=== PATIENT | female | born 1945 | race Caucasian/White ===

== ENCOUNTER → 2017-12-30 09:31 | Outpatient (POV) | payer MEDICARE, SELFPAY | PROVIDERS: Visit Provider Dentist | DX: Z00.00 Encounter for general adult medical examination without abnormal findings (principal) ==

== ENCOUNTER 2023-01-06 11:00 | Outpatient (RCR) | payer MEDICARE, SELFPAY ==
--- NOTE | 2022-12-07 15:58 | [facility].PTOPWND ---
Rehab Outpt Wound Evaluation Rehab OP Wound Evaluation Start: 12/07/22 13:52 Freq: Status: Active Protocol: Document 12/07/22 15:47 PHONICKIE (Rec: 12/07/22 15:58 PHORNE [id number]) E-signed By Josh Cabrera, PT Subjective/History History History This is the initial PT eval for Tao Newton 77 yowf who presents with c/o B LE edema and need for new compression stockings. She reports, My legs have been swollen for more than 20 years like this, that's when they diagnosed me with lymphedema. She reports compression helps decrease her pain, which is much worse if her swelling increases. She reports no numbness or tingling, but she does have significant tenderness to palpation. She reports hx of anxiety, asthma, depression, HTN, fibromyalgia, OA, CCY, gastric bypass, and ORIF of L ankle. Subjective Subjective She reports pain is currently 0/10, at worst it is 4/10. 2/4 TTP noted to B lower legs. B LE noted with soft, doughy consistency of edema during palpation with mulitple palpable nodules throughout denoting Lipidema. Lymphedema Eval Classification of Lymphedema Secondary Lymphedema Yes: Lipolymphedema Stemmer's sign Stemmer's Sign yes Stage of Lymphedema Lymphedema stages Stage III (Non-pitting, fibrosis and sclerosis, skin changes) Skin Changes Dry Skin Yes Redness Yes Discoloration of Skin Yes Other Changes Yes Pain Scale Pain Scale (0-10) 4 Affected Extremities Areas Affected by Lymphedema/Edema Right Lower Extremity,Left Lower Extremity Manual Lymphatic Drainage Treatment Area MLD Treatment Area Right Lower Extremity,Left Lower Extremity Wound Problems/Impairments Impairments Problems/Impairmments Palpation Tenderness,Impaired Strength,Impaired Endurance, Impaired Transfers,Impaired
== END 2023-01-06 11:05 | disposition home or self-care (01) ==
LOC: PT 11:00
PROVIDERS: PCP Family Medicine; Visit Provider Family Medicine
DX: I89.0 Lymphedema, not elsewhere classified (principal)
CPT/HCPCS: 97140; 97162; 97760

== ENCOUNTER → 2023-02-12 13:39 | Outpatient (CLI) | payer MEDICARE, SELFPAY ==
[2023-02-12 13:13] LABS: Basophils % 0.8 % (0.1-2.0); Eosinophils # 0.2 K/mm3 (0.0-0.4); Eosinophils % 4.6 % (0.1-12.0); Hematocrit 38.4 % (37.0-47.0); Hemoglobin 11.5 g/dL (12.2-16.2); Lymphocytes # 1.5 K/mm3 (0.7-4.5); Lymphocytes % 38.4 % (10-50); Mean Corpuscular HGB Conc 29.9 g/dL (31.8-35.4); Mean Corpuscular Hemoglobin 30.4 pg (27.0-31.2); Mean Corpuscular Volume 101.7 fl (81-99); Mean Platelet Volume 8.5 fl (7.4-10.4); Monocytes # 0.3 K/mm3 (0.1-1.0); Monocytes % 6.7 % (1.7-9.3); Neutrophils % 49.5 % (37.0-80.0); Platelet Count 222 K/mm3 (142-424); Red Blood Count 3.77 M/mm3 (4.20-5.40); Red Cell Distribution Width 14.5 % (11.5-17.5)
[2023-02-12 13:19] LABS: Alanine Aminotransferase 16 U/L (12-78); Alkaline Phosphatase 95 U/L (38-126); Aspartate Amino Transferase 24 U/L (14-36); Bilirubin,Total 0.4 mg/dl (0.2-1.3); Blood Urea Nitrogen 33 mg/dl (7-17); Carbon Dioxide 22 mmol/L (22.0-30.0); Cholesterol 161 mg/dl (140-200); Estimated Glomerular Filt Rate 29 ml/min (>60); GFR (African American) 35 ML/MIN (>60); Triglycerides 83 mg/dl (30-150); VLDL Cholesterol 17 mg/dL (0-40)
[2023-02-12 13:20] LABS: Albumin Level 3.9 g/dl (3.5-5.0); Albumin/Globulin Ratio 1.3 (1.1-1.8); Calcium 8.8 mg/dl (8.4-10.2); Glucose 85 mg/dl (74-100); HDL Cholesterol 79 mg/dl (40-60); Total Protein,Serum 6.9 g/dl (6.3-8.2)
[2023-02-12 13:31] LABS: Direct LDL Cholesterol 63.33 mg/dL (100-129)
[2023-02-12 13:47] LABS: Chloride 113 mmol/L (98-107); Sodium 143 mmol/L (136-145)
[2023-02-12 13:50] LABS: Anion Gap 15.3 mEq/L (5-15); Potassium 7.3 mmoL/L (3.5-5.1)
[2023-02-12 13:51] LABS: Thyroid Stimulating Hormone 1.51 uIU/mL (0.465-4.68)
[2023-02-13 09:18] LABS: T4 (Thyroxine) 7.3 ug/dl (5.53-11.0)
== END ==
PROVIDERS: PCP Family Medicine; Visit Provider Family Medicine
DX: R53.83 Other fatigue (principal); E78.5 Hyperlipidemia, unspecified
CPT/HCPCS: 80053; 80061; 84436; 84443; 85025

== ENCOUNTER 2025-01-24 11:09 | Outpatient (CLI) | payer MEDICARE, SELFPAY ==
--- OUTSIDE RECORDS SUMMARY | 2025-01-24 11:15 | XMS_ITS | Data Portability ---
Author Organization [facility] WERNER Coch[facility] [place] [facility] Address [address] [facility] [facility] [facility] [address] [place] [address] Care Team Providers Care Doll Dresser Name Role Phone MEERA BECKER Primary Care Provider [phone] ELMER VALENCIA Business Intelligence Engineer Assessment No assessment recorded. Plan of Treatment Reminders Order Date Submit Date Provider Last Modified By Organization Details Last Modified Time Details Appointments None recorded. Lab surgical pathology study 2023 024 [facility], [address] [place] [address], [address], 4 09:37:14 urinalysis , dipstick, auto 2018 019 [facility], [address] [facility], [place], [address], 9 13:48:08 urinalysis , dipstick, auto 2017 018 [facility], [address] [facility], [place], [address], 8 16:27:46 Referral None recorded. Procedures None recorded. Surgeries None recorded. Imaging XR, abdomen, 1 view 2018 019 [facility] Radiology [facility], [address] [facility], [place], [address], 9 15:14:34 XR, abdomen, 1 view 2017 018 [facility] Radiology [facility], [address], [place], [address], 8 15:23:26 Medication Orders None recorded. Patient TargetsNo targets recorded. Patient Instructions Encounter Date Encounter Id Patient Instructions Last Modified By Organization Details Last Modified Time 05/12/2018 [id number] kidney stone: care instructions Not available 05/12/2018 16:27:46 eating healthy foods: care instructions Not available 05/12/2018 16:27:46 KUB negative - doing/feels well. Will see back 6 mo with kub Not available 05/12/2018 16:38:12 11/09/2018 [id number] only 1 lifetime stone - doing well and trying hydration/NaAvoid ance Will see back prn Not available 11/09/2018 13:48:08 Reason for Referral None Reported. Results Created Date Observation Date Name Description Value Unit Range Abnormal Flag Note LastModifiedBy Organization Detail LastModifiedTime 11/10/19 19 11/09/2018 urina lysis , dipst ick, auto Unknown Analyte Yellow Not Available [facility] [address] [place], [address], 11/09/2018 13:32:26 11/10/19 19 11/09/2018 urina lysis , dipst ick, auto Unknown Analyte Clear Not Available [facility] [address] [place], [address], 11/09/2018 13:32:26 11/10/19 19 11/09/2018 urina lysis , dipst ick, auto Unknown Analyte 1.015 Not Available [facility] [address] [place], [address], 11/09/2018 13:32:26 11/10/19 19 11/09/2018 urina lysis , dipst ick, auto Unknown Analyte 5.0 Not Available [facility] [address] [facility], [place], [address], 11/09/2018 13:32:26 11/10/19 19 11/09/2018 urina lysis , dipst ick, auto Unknown Analyte Negati ve Not Available [facility] [address] [facility], [place], [address], 11/09/2018 13:32:26 11/10/1911/09/2018 urina lysis , dipst ick, auto Unknown Analyte Negati ve Not Available [facility] [address] [facility], [place], [address], 11/09/2018 13:32:26 11/10/1911/09/2018 urina lysis , dipst ick, auto Unknown Analyte Negtiv e Not Available [facility] [address] [facility], [place], [address], 11/09/2018 13:32:26 11/10/19 19 11/09/2018 urina lysis , dipst ick, auto Unknown Analyte Normal Not Available [facility] [address] [facility], [place], [address], 11/09/2018 13:32:26 11/10/19 19 11/09/2018 urina lysis , dipst ick, auto Unknown Analyte Negati ve Not Available [facility] [address] [facility], [place], [address], 11/09/2018 13:32:26 11/10/19 19 11/09/2018 urina lysis , dipst ick, auto Unknown Analyte Normal Not Available [facility] [address] [facility], [place], [address], 11/09/2018 13:32:26 11/10/19 19 11/09/2018 urina lysis , dipst ick, auto Unknown Analyte Negati ve Not Available [facility] [address] [facility], [place], [address], 11/09/2018 13:32:26 11/10/19 19 11/09/2018 urina lysis , dipst ick, auto Unknown Analyte Negati ve Not Available [facility] [address] [place], [address], 11/09/2018 13:32:26 11/10/19 19 11/09/2018 urina lysis , dipst ick, auto Unknown Analyte Clean Catch Not Available [facility] [address] [facility], [place], [address], 11/09/2018 13:32:26 11/10/19 19 11/09/2018 urina lysis , dipst ick, auto Unknown Analyte Automa shannon Not Available [facility] [address] [facility], [place], [address], 11/09/2018 13:32:26 05/12/20 18 05/12/2018 urina lysis , dipst ick, auto Unknown Analyte Yellow Not Available [facility] [address] [place], [address], 05/12/2018 14:26:42 05/12/20 18 05/12/2018 urina lysis , dipst ick, auto Unknown Analyte Slight ly Hazy Not Available [facility] [address] [place], [address], 05/12/2018 14:26:42 05/12/20 18 05/12/2018 urina lysis , dipst ick, auto Unknown Analyte 1.015 Not Available [facility] [address] [place], [address], 05/12/2018 14:26:42 05/12/20 18 05/12/2018 urina lysis , dipst ick, auto Unknown Analyte 5.0 Not Available [facility] [address] [facility], [place], [address], 05/12/2018 14:26:42 05/12/20 18 05/12/2018 urina lysis , dipst ick, auto Unknown Analyte Negati ve Not Available [facility] [address] [place], [address], 05/12/2018 14:26:42 05/12/20 18 05/12/2018 urina lysis , dipst ick, auto Unknown Analyte Negati ve Not Available [facility] [address] [facility], [place], [address], 05/12/2018 14:26:42 05/12/20 18 05/12/2018 urina lysis , dipst ick, auto Unknown Analyte Negtiv e Not Available [facility] [address] [place], [address], 05/12/2018 14:26:42 05/12/20 18 05/12/2018 urina lysis , dipst ick, auto Unknown Analyte Normal Not Available [facility] [address] [place], [address], 05/12/2018 14:26:42 05/12/20 18 05/12/2018 urina lysis , dipst ick, auto Unknown Analyte Negati ve Not Available [facility] [address] [place], [address], 05/12/2018 14:26:42 05/12/20 18 05/12/2018 urina lysis , dipst ick, auto Unknown Analyte 1 mg/dl Not Available [facility] [address] [place], [address], 05/12/2018 14:26:42 05/12/20 18 05/12/2018 urina lysis , dipst ick, auto Unknown Analyte 1 mg/dl (+) Not Available [facility] [address] [facility], [place], [address], 05/12/2018 14:26:42 05/12/20 18 05/12/2018 urina lysis , dipst ick, auto Unknown Analyte Negati ve Not Available [facility] [address] [facility], [place], [address], 05/12/2018 14:26:42 05/12/20 18 05/12/2018 urina lysis , dipst ick, auto Unknown Analyte Clean Catch Not Available [facility] [address] [facility], [place], [address], 05/12/2018 14:26:42 05/12/20 18 05/12/2018 urina lysis , dipst ick, auto Unknown Analyte Automa shannon Not Available [facility] [address] [facility], [place], [address], 05/12/2018 14:26:42 07/19/20 24 07/19/2024 SURGI MAGDALENO surgical SEE BELOW abnormal Verdigre topat holog y Repor t NAME: HERNANDO NEWTON PATH: [id number] PROCE DURE DATE: 07/19 SIGNO UT DATE: 07/21 Copy to: Diagn osis: 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 AJCC: Tis, Nx, Mx SOURC E OF SPECI MEN: SKIN, R FOREH EAD CLINI MAGDALENO INFOR MATIO N: R/O: SCC. Gross Descr iptio n: The speci men consi sted of a agosto fragm ent which was trise cted and measu red 9 x 6 x 1 mm. All submi tted in one casse tte. Micro scopi c Descr iptio n: The epide rmis displ ays full thick ness kerat inocy te atypi a and disor ganiz ation . Invol vemen t of the dermi s is not noted . ELIANA GARCIA MD Shelley d Out Date: 07/21 09:36 1 Not Available [facility] [address] [place], [address], 07/21/2024 09:37:14 04/14/20 18 04/14/2018 XR, abdom en [facility] [address] [place] [address] Patien t Name: TAO mcmahan : 11/12[birth year] 50 Babatunde mcmahan Orderi ng Provid er: CHRISTY S G RAY EXAM DATE: 2017 EXAM: XR CU ABDOME N [facility] AL INFORM ATION: Histor y of urinar y tract stones . IMAGES PROVID ED: KUB AP radiog raphic images of the abdome n. COMPAR BRENDA: None. FINDIN GS AND IMPRES JOCELYN: There is a double -J ureter ic stent on the right. No stone is seen. No other signif icant abnorm ality. Interp reted By: Catina Reid MD Electr onical ly Signed By: Catina Reid MD on 04/14/20 18 4:59 PM [facility] [employer] [address] [place], [address], 04/15/2018 10:54:50 05/12/20 18 05/12/2018 XR, abdom en [facility] [address] [place] [address] Patien t Name: TAO mcmahan : 11/12/18 50 Patijuanjo t Orderi ng Provid er: CHRISTY S G RAY EXAM DATE: 2017 EXAM: XR CU ABDOME N [facility] INFORM ATION: Abdomi nal pain. Urolit hiasis IMAGES PROVID ED: KUB AP radiog raphic images of the abdome n. COMPAR BRENDA: 2017 FINDIN GS: No abnorm al intest inal gas patter n. Interv al remova l of right ureter al stent. No defini te stones visual ized. No radiog raphic eviden ce of free intrap eriton eal air. IMPRES JOCELYN: Normal x-ray abdome n KUB. Interp reted By: Dung Mari MD Electr onical ly Signed By: Dung Mari MD on 05/12/20 18 3:18 PM [email or web address] [facility] [employer] [address] [place], [address], 06/09/2018 13:35:16 11/10/19 19 11/09/2018 XR, abdom en, 1 view [facility] [address] [place] [address] Patien t Name: TAO Fine t : 11/12/18 50 Patien t Orderi ng Provid er: CHRISTY S G RAY EXAM DATE: 2018 EXAM: XR ABDOME N [facility] INFORM ATION: Histor y of urinar y tract stones . IMAGES PROVID ED: KUB AP radiog raphic images of the abdome n. COMPAR BRENDA: None. FINDIN GS AND IMPRES JOCELYN: No stones or calcif icatio ns are seen in the expect ed locati on of the kidney s, ureter s or urinar y bladde r. No other signif icant abnorm ality. Interp reted By: Catina Reid MD Electr onical ly Signed By: Catina Reid MD on 11/10/19 19 3:09 PM [email or web address] [facility] [employer] [address] [place], [address], 11/15/2018 15:12:52 Result Notes None recorded. Problems Name Problem SNOMED Code Status Onset Date Resolution Date Notes Provider Name and Address Organization Details Recorded Time History of malignant neoplasm of skin 421597831 Active History of SCC-L cheek (2017) ENEDELIA Garcia - [facility] 3 10:36:45 Problem Notes None recorded. Procedures Surgical History Date Name Laterality Status Provider Name and Address Organization Details Recorded Time 07/19/20 24 DAK - Cryo AK completed Niki Orourke [facility] 07/19/2024 14:06:20 07/19/20 24 DAK - Destruction BN Lesions completed Niki Orourke [facility] 07/19/2024 14:05:39 07/19/20 24 Blade Biopsy completed Niki [facility] 07/19/2024 14:07:49 07/20/20 23 Destruction Premalignant Lesion(s) completed ELMER GROSSMAN MD [address] [place], [address], [facility] 07/20/2023 10:49:06 04/28/20 18 CYSTOSCOPY, WITH URETEROSCOPY, WITH LITHOTRIPSY (SURG) completed Kris Sullivan [facility] 05/05/2018 12:36:14 Other completed Jaymie Singh [facility] 04/01/2018 11:00:17 Imaging Results Imaging Date Name Status LastModified by Organiz ation Details LastModified Time 04/14/2018 XR, abdomen completed [place] [facility] [address] [place], [address], 04/15/2018 10:54:50 05/12/2018 XR, abdomen completed [email or web address] [facility] [address] [place], [address], 06/09/2018 13:35:16 11/09/2018 XR, abdomen, 1 view completed [email or web address] [facility] [employer] [address] [place], [address], 11/15/2018 15:12:52 Procedure Notes None recorded. Medical Equipment None Reported. Allergies No known drug allergies Medications Name Sig Start Date Stop Date Status Note LastModified by Organization Details LastModified Time celecoxib 200 mg capsule Take 1 capsule every day by oral route. active Not Available Not Available No t Available Neurontin 300 mg capsule Every night at bedtime 04/01 completed Frequenc y: qhs;Medi cation Descript ion: gabapent in; Dosage:1 ; Route:or al; refills: 5; Quantity :30 capsule Not Available Not Available Not Available triazolam 0.25 mg tablet Take 1 tablet every day by oral route. active Not Available Not Available No t Available Multiple Vitamin capsule Daily 04/01 completed Duration : 30 days;Eugenio quency: daily;Me dication Descript ion: multivit rivero; Dosage:1 ; Route:or al; refills: 3; Quantity :100 capsule Not Available Not Available Not Available lisinopri l 20 mg tablet Take 1 tablet every day by oral route. 07/20 completed Not Available Not Available Not Available alendrona te 70 mg tablet Take 1 tablet every week by oral route. 04/14 completed Not Available Not Available Not Available tramadol 50 mg tablet Every four to six hours active Not Available Not Available No t Available Mobic 15 mg tablet Daily 04/01 completed Frequenc y: daily;Me dication Descript ion: meloxica m; Dosage:1 ; Route:or al; refills: 5; Quantity :30 tablet Not Available Not Available Not Available alprazola m 0.5 mg tablet active Not Available Not Available Not Available lorazepam 0.5 mg tablet active Not Available Not Available Not Available Os-Magdaleno 500 mg (as calcium carbonate 1,250 mg) tablet Three times a day 04/01 completed Frequenc y: tid;Medi cation Descript ion: calcium carbonat e; Route:or al; refills: 0; Quantity :3 tablet Not Available Not Available Not Available meclizine 25 mg tablet Three times a day 04/01 completed Duration : 30 days;Eugenio quency: tid;Alt Frequenc y: prn;Medi cation Descript ion: meclizin e; Dosage:1 ; Route:or al; refills: 2 Not Available Not Available Not Available levothyro xine 50 mcg tablet active Not Available Not Available Not Available fluoxetin e 20 mg tablet Take 1 tablet every day by oral route. 07/20 completed Not Available Not Available Not Available Cipro 500 mg tablet Take 1 tablet every 12 hours by oral route for 3 days. 05/12 completed Not Available Not Available Not Available buspirone 10 mg tablet active Not Available Not Available Not Available fluoxetin e 10 mg capsule active Not Available Not Available Not Available lisinopri l 5 mg tablet active Not Available Not Available Not Available fluoxetin e 20 mg capsule active Not Available Not Available Not Available doxycycli ne hyclate 100 mg tablet Take 1 tablet twice a day by oral route with meal(s) for 5 days. 2024 active Not Available Not Available Not Avai lable buspirone 15 mg tablet active Not Available Not Available Not Available cholecalc iferol (vitamin D3) 25 mcg (1,000 unit) capsule active Not Available Not Available Not Available Cymbalta 60 mg capsule,d elayed release Daily 04/01 completed Frequenc y: daily;Me dication Descript ion: duloxeti ne; Dosage:1 ; Route:or al; refills: 3; Quantity :30 delayed release capsule Not Available Not Available Not Available Cipro 11/09 completed Not Available Not Available Not Available levothyro xine 50 mg 1x day active Not Available Not Available No t Available fluoxetin e active Not Available Not Available Not Available hydroxyzi ne HCl 07/20 completed Not Available Not Available Not Available furosemid e 07/20 completed Not Available Not Available Not Available Vitamin D Daily active Frequenc y: daily;Me dication Descript ion: ergocalc iferol; Dosage:1 ; Route:or al; refills: 0; Quantity :30 Not Available Not Available Not Available lisinopri l active Not Available Not Available Not Available buspirone active Not Available Not Victoria ilable Not Available Vitals Date Recorded Body height Body mass index (BMI) Body weight Systolic blood pressure Diastolic blood pressure Provider Name and Address Organization Details Last Updated DateTime 05/12/2018 162.56 cm 48.4 kg/m2 426306.0 5 g 120 mm[Hg] 82 mm[Hg] Selene Jarrell [facility] 8 14:22:41 Date Recorded Body height Body mass index (BMI) Body weight Systolic blood pressure Diastolic blood pressure Provider Name and Address Organization Details Last Updated DateTime 11/09/2018 162.56 cm 48.4 kg/m2 417165.0 5 g 112 mm[Hg] 76 mm[Hg] Cinthia Brenda [facility] 9 13:25:45 Social History Question Answer Notes LastModified by Organizat ion Details LastModified Time Tobacco Smoking Status Never Smoker Jaymie Singh [facility] 04/01/2018 10:59:30 Marital Status Informatio n not available 04/01/2018 What Was The Date Of Your Most Recent Tobacco Screening? 07/20/2023 [email or web address] Information not available 07/20/2023 How Much Tobacco Do You Smoke? No [email or web address] Information not available 11/09/2018 Sex: Unknown Functional Status Question Answer Note LastModified by Organization D etails LastModified Time What is your level of alcohol consumption? None Information not available 04/01/2018 What is your occupation? Retired Information not available 04/01/2018 Mental Status None recorded. Family History Relationship Description Onset Age of this Age Resolved Age Notes LastModified by Organization Details LastModified Time Father Family history of malignant neoplasm mother braden Not available 2017 10:59:16 Father Malignant neoplasm of skin [email or web address] Not available 2022 10:05:23 Medical History Condition Response Gout N Kidney Stones Y Heart Arrhythmia N Emphysema N Erectile Dysfunction N Depression Y Glaucoma N Pneumonia N Anesthesia Complications N Cancer Prostate N Anxiety Disorder Y Obesity N Arthritis Y Acid Reflux (GERD) N Cancer N Stroke N Radiation Therapy N High Cholesterol N High PSA N Liver Disease N Kidney Disease N Allergies/Hayfever N Squamous Cell Carcinoma Y False Teeth N Heart Conditions N Chronic Obstructive Pulmonary Disease N Chemotherapy N Anemia N Urinary Problems N Ulcers N Heart Attack (MS) N Mental Illness N Diabetes N Seizures/Epilepsy N Low Testosterone N Tuberculosis N AIDS/HIV N Congestive Heart Failure (CHF) N BPH N Urinary Tract Infection N Asthma N Sleep Apnea N Thyroid Disorder N Hepatitis N Heart Disease N Bronchitis N Hypertension Y Gynecological HistoryNo gynecological history recorded. Obstetrics History GPAL:G 0 P 0 0 0 0 Past Encounters Encounter ID Performer Location Encounter Start Date Encounter Closed Date Diagnosis/Indication Diagnosis SNOMED-CT Code Diagnosis ICD10 Code Diagnosis Note [id number] OCTAVIA RAYA MD [address] [place] [address] 04/01/2018 10:08:26 04/05/2018 08:41:48 Ureteric stone 42701688 N20.1 [id number] BAO BOBO [facility] [address] [facility] [address] 04/14/2018 13:32:40 04/15/2018 09:13:36 Ureteric stone 81564113 N20.1 Obesity 689401828 E66.9 [id number] BAO BOBO MD UROLOGY [facility] [address] [place] [address] 05/12/2018 13:39:00 05/13/2018 08:38:20 Ureteric stone 75212061 N20.1 Hx of [id number] BAO BOBO MD UROLOGY [facility] [address] [facility] [address] 11/09/2018 13:10:47 11/10/2018 13:08:34 Kidney stone 39531664 N20.0 [id number] ELMER GROSSMAN MD [place] [address] [place] [address] 07/20/2023 09:45:46 07/20/2023 10:52:28 Melanocytic nevus of trunk 401000680 D22.5 - Benign, reassuranc e- Counseled on importance of daily sun protection (SPF 30, Broad Spectrum or sun protective clothing) and self skin exams/toña toring for ugly duckling lesions Raised cristina orrheic keratosis 6745360498 34340 L82.1 -Benign, reassuranc e Senile angioma 6630314 I 78.1 -Benign, reassuranc e Solar lentiginosis 80127 2007 L81.4 Benign, reassuranc e- Counseled on importance of daily sun protection (SPF 30, Broad Spectrum or sun protective clothing) and self skin exams/toña toring for ugly duckling lesions History of malignant basal cell neoplasm of skin 618406532 Z85.828 - No evidence of recurrence - Counseled on importance of daily sun protection (SPF >30, Broad Spectrum &/or sun protective clothing) and self exams for monitoring - Recommend routine FBSE Actinic keratosis 191793 007 L57.0 -Precancer ous nature discussed- Will TX with LN2 today (see proc note)-FUP if sites persist after TX History of malignant neoplasm of skin 049152244 Z85.828 - No evidence of recurrence - Counseled on importance of daily sun protection (SPF >30, Broad Spectrum &/or sun protective clothing) and self exams for monitoring - Recommend routine FBSE [id number] MILE MONTANA PA-C [address] [address] 07/19/2024 13:45:46 07/19/2024 15:26:10 Multiple benign melanocytic nevi 490363210 D22.5 L81.4 L82.1 D18.01 Benign appearing lesions.Re assurance given.Sun protection discussed. Look for physical tram sunscreens with at least SPF 30 containing zinc oxide or titanium dioxide as active ingredient .Recommend monthly self examinatio ns and yearly full skin examinatio n with a dermatolog y provider.P atient instructed to call with any concerns or changing lesions. History of malignant neoplasm of skin 723063526 Z85.828 Scar(s) clear with no evidence of recurrence today.Cont inue to monitor for any changes. Inflamed s eborrheic keratosis 668347189 L82.0 L29.89 The nature of the diagnosis was explained. Benign. Reassuranc e given.Both ersome lesions (itching, painful, growing, bleeding, getting caught in clothing), treated with LN2.Lesion s treated may persist. May f/u if treated lesions persist. Actinic keratosis L57.0 The nature of the diagnosis was explained. Pre-cancer ous.Treate d with LN2. Healing process discussed. Pt to call with any concerns or if lesion(s) persist. Neoplasm o f uncertain behavior of skin 34368744 D48.5 The etiology of lesion(s) discussed. Biopsy recommende d and completed today.Heal ing process and wound care discussed. Will call pt with results or post to portal if benign. [id number] AMANDA OROURKE, SHON KODIAK [address] [facility] [place] [address] 10/30/2024 08:58:17 10/31/2024 11:47:58 Health Concerns Section Related Observation LastModified by Organization Detai ls LastModified Time None Recorded Concern Status LastModified by Organization Details LastModified Time None Recorded Advance Directives Directive None Recorded Payers Insurance Date Sequence Insurance Name Policy Number Policy Trevino Covered Member ID Trevino Member ID Guarantor Name 11/02/2024 1 [facility] (MEDICARE REPLACEMENT/A DVANTAGE - PPO) [id number] Tao Newton [id number] Tao Newton 04/01/2018 2 [place] Dominickjanee Newton [id number] Tao Newton Notes Date Note Type Note Provider Name and Address Organization Details Recorded Time 05/12/2018 text/html 72 yo female returns for f/u 12 mm right ureteral stone. She was seen at the ER in [place] for fever, right flank pain and gross hematuria. She was transferred to and underwent urgent stent placement on 03/24 and then later laser lithotripsy. She has had no further flank pain or fever. She denies any hematuria, change in appetite, or abdominal pain. Patient c/o increased fluid intake with decrease in urine output. BAO BOBO MD [address] [place] [address], [address], [facility] 05/12/2018 16:38:29 11/09/2018 text/html 72 yo female returns for a 6 mo f/u visit. She has previously been seen due to a large right ureteral stone requiring Lithotripsy in March 2018. She denies recent passage of stones. No recent flank pain or gross hematuria. She is doing well. BAO BOBO MD [address] [place] [address], [phone], [facility] 11/09/2018 13:48:21 07/20/2023 text/html - Pt is here for a full body skin exam today- History of SCC-L cheek (2016)- Last skin exam was 05/07/[address] Noriega- Spots of concern today: multiple rough places Established DAK patient. ELMER GROSSMAN MD [address] [place] [address], [phone], [facility] 07/20/2023 10:49:20 07/19/2024 text/html Full skin examI have a place on my forehead and my L shoulder. Hx of SCC-L cheek (2016)Last seen 07/2023 MILE MONTANA PA-C [address] [place] [address], [phone], [facility] 07/19/2024 14:25:04 OBGyn Episode No OBEpisode recorded.
[2025-01-24 11:23] LABS: Microscopic, Urine URINE MICROSCOPIC (MICROSCOPIC)
[2025-01-24 11:47] LABS: Hematocrit 35.4 % (37.0-47.0); Hemoglobin 10.6 g/dL (12.2-16.2); Mean Corpuscular HGB Conc 29.9 g/dL (31.8-35.4); Mean Corpuscular Hemoglobin 27.7 pg (27.0-31.2); Mean Corpuscular Volume 92.7 fl (81-99); Nucleated Red Blood Cells # 0 10^3/uL; Nucleated Red Blood Cells % 0 %; Platelet Count 230 K/mm3 (142-424); Red Blood Count 3.82 M/mm3 (4.20-5.40); Red Cell Distribution Width 16.2 % (11.5-17.5); White Blood Count 3.9 K/mm3 (4.8-10.8)
[2025-01-24 11:51] LABS: Appearance,Urine SL CLOUDY (Clear); Bilirubin,Urine Negative (Negative); Blood, Urine Negative (Negative); Color,Urine YELLOW (Yellow); Glucose,Urine (UA) Negative (Negative); Ketones,Urine Negative (Negative); Leukocyte Esterase,Urine Negative (Negative); Nitrate,Urine POSITIVE (Negative); PH,Urine 5.5 (5.0-8.5); Protein,Urine Negative (Negative); Specific Gravity, Urine 1.025 (1.005-1.030); Urobilinogen,Urine 0.2 EU/dl (0.2)
[2025-01-24 11:59] LABS: Creatinine,Urine Random 215 mg/dL (Not Estab.)
[2025-01-24 12:02] LABS: Bacteria,Urine 4+ /lpf
[2025-01-24 12:23] LABS: Blood Urea Nitrogen 31 mg/dl (7-17); Calcium 8.8 mg/dl (8.4-10.2); Carbon Dioxide 28 mmol/L (22.0-30.0); Chloride 108 mmol/L (98-107); Estimated Glomerular Filt Rate 40 ml/min (>60); GFR (African American) 48 ML/MIN (>60); Glucose 90 mg/dl (74-100); Phosphorous 3.9 mg/dl (2.5-4.5); Sodium 141 mmol/L (136-145)
[2025-01-24 12:38] LABS: 25-OH Vitamin D, Total 37.7 ng/mL (30-100)
[2025-01-25 08:21] LABS: Cystatin C 1.97 mg/L (0.78-1.15)
== END 2025-01-24 23:59 | disposition home or self-care (01) ==
LOC: LAB 11:14
PROVIDERS: PCP Family Medicine; Visit Provider Nurse Practitioner Family
DX: N18.31 Chronic kidney disease, stage 3a (principal); E55.9 Vitamin D deficiency, unspecified
CPT/HCPCS: 36415; 80069; 81001; 82306; 82570; 82610; 83970; 84156; 85027; 87086; 87088; 87186

== ENCOUNTER 2025-04-25 12:30 | Outpatient (CLI) | payer MEDICARE, SELFPAY ==
[2025-04-25 17:54] LABS: Albumin Level 3.9 g/dl (3.5-5.0); Chloride 110 mmol/L (98-107); Potassium 5.4 mmoL/L (3.5-5.1); Sodium 142 mmol/L (136-145)
[2025-04-25 17:57] LABS: Alanine Aminotransferase 12 U/L (12-78); Albumin/Globulin Ratio 1.5 (1.1-1.8); Alkaline Phosphatase 94 U/L (38-126); Anion Gap 12.4 mEq/L (5-15); Aspartate Amino Transferase 24 U/L (14-36); Bilirubin,Total 0.2 mg/dl (0.2-1.3); Blood Urea Nitrogen 41 mg/dl (7-17); Calcium 8.6 mg/dl (8.4-10.2); Carbon Dioxide 25 mmol/L (22.0-30.0); Creatinine,Serum 1.40 mg/dl (0.52-1.04); Estimated Glomerular Filt Rate 36 ml/min (>60); GFR (African American) 44 ML/MIN (>60); Globulin 2.6 g/dL (1.3-3.2); Glucose 62 mg/dl (74-100); Total Protein,Serum 6.5 g/dl (6.3-8.2)
[2025-04-25 18:29] LABS: Thyroid Stimulating Hormone 2.44 uIU/mL (0.465-4.68)
[2025-04-25 19:54] LABS: Free T4 (Free Thyroxine) 1.24 ng/dl (0.78-2.19)
--- OUTSIDE RECORDS SUMMARY | 2025-04-26 10:52 | XMS_ITS | Clinical Summary ---
Author Organization [facility] Address [address] [place] [address] Care Team Providers Care Die Operator Name Role Phone Maverick Britton MD Primary Care Provider [phone] Allergies Active Allergy Reactions Criticality Noted Date Comments 2,4-D Dimethylamine Rash Low 04/27/2007 Medications traMADol (Ultram) 50 MG tablet Take as needed 3 Active levothyroxine (Synthroid, Levoxyl) 50 MCG tablet levothyroxine 50 mcg tablet 5 Active triazolam (Halcion) 0.25 MG tablet Take 1 tablet (250 mcg) by mouth at night if needed for sleep. Active FLUoxetine (PROzac) 20 MG capsule 3 Active celecoxib (CeleBREX) 200 MG capsule 3 Active busPIRone (Buspar) 15 MG tablet 1 tablet (15 mg) 3 (three) times a day. 4 Active LORazepam (Ativan) 0.5 MG tablet 4 Active FLUoxetine (PROzac) 10 MG capsule 3 capsules (30 mg) 1 (one) time each day. 4 Active ALPRAZolam (Xanax) 0.5 MG tablet 4 Active cholecalcifero l (Vitamin D-3) 25 MCG (1000 UT) capsule Take 1 capsule by mouth daily. 90 capsule 2 5 Active lisinopril 5 MG tablet Take 1 tablet by mouth daily. 90 tablet 2 5 Active Active Problems Problem Noted Date Diagnosed Date Stage 3a chronic kidney disease 04/14/2023 SIRISHA (acute kidney injury) 04/14/2023 Renal insufficiency 02/13/2023 03/03/2023 Hyperkalemia 02/12/2023 03/03/2023 Obesity, morbid, BMI 50 or higher 11/30/2017 03/03/2023 Osteoarthritis 11/30/2017 03/03/2023 Lymphedema 12/30/2016 03/03/2023 Orthopnea 12/30/2016 03/03/2023 Acquired hypothyroidism 08/19/2016 03/03/20 23 Essential hypertension 08/19/2016 3 Insomnia 08/19/2016 03/03/2023 Major depressive disorder 08/19/20162022 Multiple joint pain 08/19/2016 03/03/2023 Vitamin D deficiency 08/19/2016 03/03/2023 Left ankle pain 08/07/2015 03/03/2023 Bimalleolar fracture of left ankle 01/14/2015 03/03/2023 Thoracic spine fracture 01/04/2015 03/03/20 23 Encounters Date Type Department Care Team Description 02/01/2025 Telephone [facility] Nephrology, Bone & Mineral Metabolism [address], [address] [place] [address] Delma Garcia 01/30/2025 [facility] Nephrology, Bone & Mineral Metabolism [address], [address] [place] [address] Felipe Villanueva PA from Last 3 Months Immunizations Immunization Administration Dates Next Due Influenza, Unspecified 06/03/2015,06/29/2014 Influenza, high-dose, quadrivalent 08/04/2022, Influenza, injectable, quadrivalent 07/22/2017 Moderna COVID-19 Vaccine (Re d Cap) 12+ years 12/31/2021,07/09/2021,2020,10/16 Pneumococcal Polysaccharide PPV23 06/29/2014 TD (adult), 2 Lf tetanus tox oid, preservative free, adsorbed 02/06/1999 Zoster, live 08/21/2009 Social History Tobacco Use Types Packs/Day Years Used Date Smoking Tobacco: Never Smokeless Tobacco: Never Tobacco Cessation:Counseling Given: Not Answered Alcohol Use Standard Drinks/Week Comments Never 0 (1 standard drink = 0.6 oz pur e alcohol) PHQ-2 Answer Date Recorded Patient Health Questionnaire-2 Score 2 06/16/2023 PHQ-2A Answer Date Recorded Patient Health Questionnaire-2 Score 2 06/16/2023 Comments Unknown Sex and Gender Information Value Date Recorded Sex Assigned at Female 01/11/2024 2:45 PM EDT Legal Sex Female 7:45 PM EDT Gender Identity Female 01/11/2024 2:45 PM EDT Sexual Orientation Not on file Last Filed Vital Signs Vital Sign Reading Time Taken Comments Blood Pressure 145/77 01/23/2025 10:46 AM EDT Pulse 64 06/16/2023 9:42 AM EDT Temperature 36.4 C (97.5 F) 06/16/2023 9:42 AM EDT Respiratory Rate 18 06/16/2023 9:42 AM EDT Oxygen Saturation 93% 06/16/2023 9:42 AM EDT Inhaled Oxygen Concentration - - Weight 136 kg (300 lb) 01/23/2025 10:46 AM EDT Height 162.6 cm (5' 4 ) 01/23/2025 10:46 AM EDT Body Mass Index 51.49 01/23/2025 10:46 AM EDT Plan of Treatment Upcoming Encounters Date Type Department Care Team (Late st Contact Info) Description 07/24/2025 10:40 AM EST Office Visit [facility] Nephrology, Bone & Mineral Metabolism [address], [address] [place] [address] Libby Cameron APRN [address] [place] [address] Health Maintenance Due Date Last Done Comments [facility]-Bone Density Scan 1945 [facility]-Hepatitis C Screening 1945 [facility]-Medicare Annual Wellness (AWV) 1945 [facility]-Infant/Child/Adol SDOH Screenings 1945 [facility]- SDOH Screenings 11/12/1965 [facility]-Adult SDOH Screenings 11/12/1965 [facility]-DTaP,Tdap,and Td Vaccines (1 - Tdap) 02/07/1999 02/06/1999 [facility]-Zoster Vaccines (1 of 2) 10/16/2009 08/21/2009 [facility]-Pneumococcal Vaccine: 50+ Years (2 of 2 - PCV) 06/29/2015 06/29/2014 [facility]-RSV Vaccine: 60+ Years or (1 - 1-dose 75+ series) 11/12/2022 [facility]-Depression Screening 06/16/2024 06/16/2023 [id number] Vaccine (8 - Moderna risk 2023- season) 2025 07/27/2024, 06/14/2023, 07/01/2022, Additional history exists [facility]-Influenza Vaccine (#1) 05/07/202507/27, 06/14/2023, 08/04/2022, Additional history exists [facility]-Obesity Intervention Completed 025, 07/25/2024, 01/12/2024, Additional history exists HPV Vaccines Aged Out No longer eligi ble based on patient's age to complete this topic [facility]-HIB Vaccines Aged Out No longer e ligible based on patient's age to complete this topic [facility]-Hepatitis A Vaccines Aged Out No longer eligible based on patient's age to complete this topic [facility]-IPV Vaccines Aged Out No longer e ligible based on patient's age to complete this topic [facility]-Rotavirus Vaccines Aged Out No lo nger eligible based on patient's age to complete this topic Insurance MEDICARE Care Teams Die Operator Relationship Specialty Start Date End Date Maverick Britton MD [facility] - General 02/16/23
--- OUTSIDE RECORDS SUMMARY | 2025-04-26 10:52 | XMS_ITS | Continuity of Care Document ---
Author Organization [facility] Address [address] [place] [address] Phone Care Team Providers Care Regional Business Manager Name Role Phone Maverick Britton MD Primary Care Provider [phone] Encounters Date Type Department Care Team Description 02/22/2023 Orders Only [facility] Nephrology [place] [address] [facility] [address] [place] [address] Oneil Pastor MD Hyperkalemia (Primary Dx) 02/12/2023 7:00 PM EDT - 02/15/2023 4:20 PM EDT Hospital Encounter [facility] [address]D [facility] [place] [address] Giselle Staples MD Kiri, Aniket, DO Hyperkalemia (Primary Dx) Discharge Disposition: Home or Self Care 03/19/2022 Travel 03/19/2022 2:00 PM EDT - 03/19/2022 11:59 PM EDT Hospital Encounter [facility] [address] [place] [address] Maverick Britton MD Encounter for screening mammogram for malignant neoplasm of breast Discharge Disposition: Home or Self Care 03/11/2021 Travel 03/11/2021 1:30 PM EDT - 03/11/2021 11:59 PM EDT Hospital Encounter [facility] [place] [address] Maverick Britton MD Breast pain, left Discharge Disposition: Home or Self Care 03/11/2021 12:52 PM EDT - 03/11/2021 1:29 PM EDT Hospital Encounter [facility] [address] [place], [place] [address] Maverick Britton MD Breast pain, left Discharge Disposition: Home or Self Care 11/09/2019 1:06 PM EST - 11/09/2019 11:59 PM EST Hospital Encounter [facility] [address] [place] [address] Maverick Britton MD Encounter for screening mammogram for malignant neoplasm of breast Discharge Disposition: Home or Self Care 11/06/2019 Travel 03/22/2018 12:42 PM EDT - 03/22/2018 11:59 PM EDT Hospital Encounter [facility] [address] [place] [address] Maverick Britton MD Encounter for screening mammogram for malignant neoplasm of breast Discharge Disposition: Home or Self Care 03/15/2017 1:15 PM EDT - 03/15/2017 11:59 PM EDT Hospital Encounter [facility] [address] [place] [address] Maverick Britton MD Visit for screening mammogram Discharge Disposition: Home or Self Care 06/30/2013 4:47 AM EDT - 06/30/2013 11:59 PM EDT Hospital Encounter [facility] Other Location View online schedule for mobile van location [phone] Anne Newton MD Other screening mammogram Discharge Disposition: Home or Self Care Allergies No known active allergies Medications LEVOthyroxine (SYNTHROID) 50 mcg Oral TabletIndicatio ns:hypothyroidi sm Take by mouth daily. Indications: a condition with low thyroid hormone levels Active FLUoxetine (PROZAC) 20 mg Oral CapsuleIndicati ons:major depressive disorder Take 20 mg by mouth daily. Indications: major depressive disorder Active busPIRone (BUSPAR) 10 mg Oral Tablet Take 10 mg by mouth daily. Active triazolam (HALCION) 0.25 mg Oral TabletIndicatio ns:insomnia Take 0.25 mg by mouth nightly as needed for Other. Indications: difficulty sleeping Active traMADoL (ULTRAM) 50 mg Oral TabletIndicatio ns:pain Take 50 mg by mouth every 6 hours as needed for Pain. Indications: pain Active Active Problems Problem Noted Date Diagnosed Date Renal insufficiency 02/13/2023 Obesity, morbid, BMI 50 or higher 02/13/2023 Acquired hypothyroidism 02/13/2023 Hyperkalemia 02/12/2023 Social History Smoking Status as of 04/26/2025 Tobacco Use Types Packs/Day Years Used Date Smoking Tobacco: Never Assessed Overall Financial Resource Strain (CARDIA) Answe r Date Recorded How hard is it for you to pa y for the very basics like food, housing, medical care, and heating? Not very hard 02/15/2023 PHQ-2 Answer Date Recorded PHQ-2 Total Score 0 02/15/2023 Exercise Vital Sign Answer Date Recorde d On average, how many days pe r week do you engage in moderate to strenuous exercise (like a brisk walk)? 2 days 02/15/2023 On average, how many minutes do you engage in exercise at this level? 20 min 02/15/2023 Hunger Vital Sign Answer Date Recorded Within the past 12 months, y ou worried that your food would run out before you got the money to buy more. Never true 02/16/20 23 Within the past 12 months, t he food you bought just didn't last and you didn't have money to get more. Never true 02/15/2023 PRAPARE - Transportation Answer Date Re corded In the past 12 months, has l ack of transportation kept you from medical appointments or from getting medications? No 02/04 In the past 12 months, has l ack of transportation kept you from meetings, work, or from getting things needed for daily living? No 02/15/2023 Sex and Gender Information Value Date Recorded Sex Assigned at Not on file Legal Sex Female 1:26 PM EDT Gender Identity Not on file Sexual Orientation Not on file Last Filed Vital Signs Vital Sign Reading Time Taken Comments Blood Pressure 113/57 02/15/2023 9:27 AM EDT Pulse 68 02/15/2023 9:27 AM EDT Temperature 36.7 C (98.1 F) 02/15/2023 9:27 AM EDT Respiratory Rate 16 02/15/2023 9:27 AM EDT Oxygen Saturation 98% 02/15/2023 9:27 AM EDT Inhaled Oxygen Concentration - - Weight 131 kg (288 lb 12.8 oz) 02/13/2023 12:59 AM EDT Height 160 cm (5' 3 ) 02/13/2023 12:59 AM EDT Body Mass Index 51.16 02/13/2023 12:59 AM EDT Plan of Treatment Not on file Procedures Procedure Name Priority Date/Time Associated Diagnosis Comments SCANNED EKG 02/15/2023 12:09 PM EDT ECG AND WAVEFORMS - TELEMETRY Routine 02/15/2023 7:30 AM EDT BASIC METABOLIC PANEL Early AM 02/15/2023 7:21 AM EDT IP CONSULT TO NUTRITION Routine 02/14/2023 11:51 PM EDT ECG AND WAVEFORMS - TELEMETRY Routine 02/14/2023 6:00 PM EDT PLATELET COUNT Timed 02/14/2023 9:38 AM EDT BASIC METABOLIC PANEL Early AM 02/14/2023 9:38 AM EDT ECG AND WAVEFORMS - TELEMETRY Routine 02/13/2023 11:57 PM EDT ECG AND WAVEFORMS - TELEMETRY Routine 02/13/2023 7:09 PM EDT US RENAL AND BLADDER Routine 02/13/2023 5:49 PM EDT SODIUM LEVEL URINE Routine 02/13/2023 5:22 PM EDT PROTEIN/CREATININ E RATIO URINE Routine 02/13/2023 5:22 PM EDT ECG AND WAVEFORMS - TELEMETRY Routine 02/13/2023 4:27 PM EDT THYROID STIMULATING HORMONE Routine 02/13/2023 12:31 PM EDT VITAMIN B12/ FOLIC ACID Routine 02/13/2023 12:31 PM EDT BASIC METABOLIC PANEL Early AM 02/13/2023 12:31 PM EDT IP CONSULT TO NEPHROLOGY Routine 02/13/2023 12:22 AM EDT Procedure Note - Oneil Pastor MD - 02/13/2023 12:50 PM EDTThis note is in progress. Images from the original note were not included. [facility] [phone] / [phone] [employer] [facility] Consult Note Patient: Tao Newton : 1945 Reason for Consult: Hyperkalemia Requesting Provider: Dr Staples History of Present Illness / Subjective: Tao Newton is a 77 y.o. female with a PMHx of HTN, lymphedema, depressionwho presents with abnormal outpatient labs. Admitted withHyperkalemia. Tao Newton reports that she takes lisinopril 20mg qday and celebrex. Nonew issues, symptoms, or complaints reported today. +NSAID use. Per chart review, Tao Newton No prior labs are available, unknownbaseline renal function (unknown if Elevated Creatinine is SIRISHA or CKD).She reports no prior kidney issues except a kidney stone one time; [facility]. Social History: no family present. Chief Complaint Patient presents with Hyperkalemia Pt sent in by PMD for high potasium. History reviewed. No pertinent past medical history. History reviewed. No pertinent surgical history. Allergies: Patient has no known allergies. Current Medications: Scheduled Meds: cefTRIAXone (ROCEPHIN) IVPB (Orderable) 1 g Intravenous Daily heparin, porcine (PF) 5,000 Units Subcutaneous 3 times per day LEVOthyroxine 50 mcg Oral DAILY EARLY AM Continuous Infusions: sodium bicarbonate - custom infusion builder 100 mL/hr at 02/13/23 0607 Social History Occupational History Not on file Tobacco Use Smoking status: Never Smokeless tobacco: Never Vaping Use Vaping Use: Never used Substance and Sexual Activity Alcohol use: Yes Comment: occ Drug use: Never Sexual activity: Not on file History reviewed. No pertinent family history. Review of Systems Constitutional: Negative for chills and fever. Cardiovascular: Positive for leg swelling. Gastrointestinal: Negative for abdominal pain. Genitourinary: Negative for dysuria. Skin: Negative for itching and rash. Endo/Heme/Allergies: Negative for polydipsia. Psychiatric/Behavioral: Negative for memory loss. Physical exam: Vitals: 02/13/23 0907 BP: 123/63 Pulse: 63 Resp: (!) 23 Temp: 98.1 F (36.7 C) SpO2: 97% Temp (24hrs), Av.8 F (36.6 C), Min:97.2 F (36.2 C), Max:98.1 F(36.7 C) & BP Min: 113/46 Max: 157/75 Pulse Av.8 Min: 63 Max: 112 24HR INTAKE/OUTPUT: Intake/Output Summary (Last 24 hours) at 02/13/2023 1250 Last data filed at 02/13/2023 0607 Gross per 24 hour Intake 1243.38 ml Output 1050 ml Net 193.38 ml Exam: Constitutional: Alert, appropriate, no acute distress HEENT: Normocephalic, external ears and nose normal Eyes: No injection, icterus, EOM grossly intact Neck: Supple, No tracheal shift Chest: No respiratory distress, clear to auscultation bilaterally, breathsounds vesicular, no wheeze, no crackles CVS: RRR, normal S1 & S2, no murmur LE edema +trace with lymphedema changes ABD: Soft, non-distended, non-tender. Morbidly obese Neuro: Moving all extremities, grossly intact. Skin: No rash, lesions, warm to touch Extremity: good perfusion, no lesion noted Database CBC: Recent Labs 02/12/23 184 WBC 5.2 HGB 11.3 HCT 38.0 MCV 103.8* MCHC 29.7* RDW 14.7 PLT 210 RENAL FUNCTION PANEL: Recent Labs 02/12/23 184 NA 139 K 6.4* CL 113* CO2 18* BUN 37* CREATININE 1.61* CALCIUM 9.1 PHOS 3.6 Magnesium: Recent Labs 02/12/231844 MG 2.2 COAGS: Liver panel: ABGs: ACID - BASE: Recent Labs 02/12/23184402/12/232026 ANIONGAP 8 -- KETONESU -- Negative UA Lab Results Component Value Date SPECGRAV 1.026 02/12/2023 UAPROTEIN Trace (10-20 mg/dL) 02/12/2023 BLOODU Negative 02/12/2023 NITRITE Negative 02/12/2023 LEUKOCYTESUR 2+ (75 Karina/mcl) (A) 02/12/2023 WBCUA 14 (H) 02/12/2023 RBCUA 1 02/12/2023 RADIOLOGY XR CHEST AP PORTABLE Result Date: 02/12/2023 AP PORTABLE CHEST XRAY, 02/12/2023 8:54 PM. CLINICAL HISTORY: -HYPERKALEMIACOMPARISON: None. PROCEDURE COMMENTS: AP portable chest x-ray. FINDINGS:Support devices: No visible support devices. Normal heart size. Aortamoderately tortuous with calcifications. No acute failure, pneumonia, oreffusion. No acute cardiopulmonary process. - Note: Radiology results need to beinterpreted within a comprehensive clinical context. If you havequestions about the radiology report, please contact the office of theordering clinician. EK EKG [address] [facility] Date:2023-[facility]12 Pat Name: TAO NEWTON Department: DEPIDPatient ID: [id number] Room: Gender: FemaleTechnician: [facility] : [id number] By: [facility] Order Number: [id number] MD: Hamzah ChMeasurements Intervals [place] Rate:71 P: 47 NH: 163QRS: -26 QRSD: 89 T:5 QT: 327 QTc:357Interpretive Statements SINUS RHYTHM WITH SINUS ARRHYTHMIA BORDERLINE LEFTAXIS DEVIATION VOLTAGE CRITERIA FOR LVH Electronically Signed On :59:32 EDT by Hamzah Ch Impression & Plan: # Hyperkalemia: - Admission K+ 6.4 -> 5.8 - A potassium restricted diet is typically about 2000 milligrams per day - Likely due to SIRISHA/CKD plus ACEi use with NSAIDs, plus NAGMA. * Plan: - Acute management in ER. S/p Lokelma. Goal BM today. Gave 20mg IVLasix as well. - Redosed veltassa today. - Target level 3.5-5.0 mEq/L. Avoid K supplementation. - Stop ACEi, ARB, NSAIDs. --> takes celebrex + lisinopril combo. - Repeat labs - Treating acidosis as below. # Acute Metabolic Acidosis: - CO2: 18 - Likely due to SIRISHA, plus ACEi use with NSAIDs use. * Plan: - Added bicarb gtt overnight. -> now stopped it #) Elevated Creatinine: SIRISHA versus CKD - Unfortunately, no prior labs are available for viewing today. Historyas above. Patient reports no h/o CKD. - Baseline creatinine: unknown - Admission creatinine 1.6 -> 1.6. - Evaluations this admission: - UA: few wbc - Urine electrolytes: _ - UPCR: _ - Renal insults: no recent contrast exposure, no antibiotics, no knownhypotension. - Cardiac function: denies issues. - Urine output: Non-Oliguric - Will treat empirically as SIRISHA to be safe. * Plan: - Repeat renal labs. Screen for Proteinuria. - mIVF resuscitation: LR at 75 ml/hr - Will follow-up the initial lab results and determine a correspondingplan. - Ordered: Urinalysis, Urine electrolytes, Urine spot Protein/Creatinine. - Ordered: Renal Ultrasound. - Avoid nephrotoxic medications (contrast dye, NSAIDs). Daily StandingWeights and strict I/O's. # Hypertension: - BP control is adequate to low for her age - Home meds: Lisinopril (held) - Meds are currently held. Thank you very much for asking us to participate in your patient's care.Do call me if you have any questions regarding the plan of care asoutlined. Cintia Pastor MD [facility] ([facility]) [phone] [employer] 02/13/2023, 12:50 PM XR CHEST AP PORTABLE NITO 02/12/2023 8:54 PM EDT URINALYSIS REFLEX STAT 02/12/2023 8:2 7 PM EDT UA W/REFLEX TO CULTURE STAT 02/12/2023 8:27 PM EDT URINE CULTURE (NO STAIN) STAT 02/12/2023 8:27 PM EDT EXTRA NEWTON URINE CX STAT 02/12/2023 8:27 PM EDT ADMIT STAT 02/12/2023 7:52 PM EDT PHOSPHORUS LEVEL Add-On 02/12/2023 6:45 PM EDT MAGNESIUM LEVEL Add-On 02/12/2023 6:45 PM EDT BASIC METABOLIC PANEL STAT 02/12/2023 6:45 PM EDT CBC WITH DIFF STAT 02/12/2023 6:45 PM EDT EK EKG 12 LEAD STAT 02/12/2023 4:11 PM EDT MM MAMMO DIGITAL SCREENING W CAD BILAT Routine 03/19/2022 2:38 PM EDT Encounter for screening mammogram for malignant neoplasm of breast MM US BREAST LIMITED LEFT Routine 03/11/2021 1:57 PM EDT Breast pain, left MM MAMMO DIGITAL SMILEY DIAGN BILAT Routine 03/11/2021 1:42 PM EDT Breast pain, left MM MAMMO DIGITAL SCREENING W CAD BILAT Routine 11/09/2019 1:32 PM EST Encounter for screening mammogram for malignant neoplasm of breast MM MAMMO DIGITAL SCREENING W CAD BILAT Routine 03/22/2018 1:08 PM EDT Encounter for screening mammogram for malignant neoplasm of breast MM MAMMO DIGITAL SCREENING W CAD BILAT Routine 03/15/2017 1:48 PM EDT Visit for screening mammogram MM OUTSIDE FILMS FOR COMPARISON Today 07/06/2013 12:27 PM EDT MM OUTSIDE FILMS FOR COMPARISON Today 07/06/2013 12:26 PM EDT MM OUTSIDE FILMS FOR COMPARISON Today 07/06/2013 12:25 PM EDT MM OUTSIDE FILMS FOR COMPARISON Today 07/06/2013 12:24 PM EDT MM MOBILE MAMMO DIGITAL SCREEN W CAD ARIADNA Routine 06/30/2013 4:27 PM EDT Other screening mammogram Results * SCANNED EKG (02/15/2023 12:09 PM EDT) Anatomical Region Laterality Modality Other 02/15/2023 12:0 9 PM EDT us Unknown Provider IMG ECG ORDERABLES Final Result * ECG AND WAVEFORMS - TELEMETRY (02/15/2023 7:30 AM EDT) Only the most recent of4 resultswithin the time period is included. [facility] ECG INTERPRET NSR [facility] 02/15/2023 7:30 AM EDT Narrative [facility] - 02/15/2023 10:29 AM EDT /LH/HICUITY/ROUTINE [place] 0.17 QRS 0.12 QT 0.38 See Clinical Report link for waveform capture us Unknown Provider POINT OF CARE CARDIOLOGY Final Result [facility] [address] [place] [id number] * (ABNORMAL) BASIC METABOLIC PANEL (02/15/2023 7:21 AM EDT) Only the most recent of4 resultswithin the time period is included. [facility] Sodium 140 136 - 145 mmol/L 02/15/2023 8:06 AM EDT [facility] Potassium 5.0 3.5 - 5.0 mmol/L 02/15/2023 8:06 AM EDT [facility] Chloride 108(H) 98 - 107 mmol/L 02/15/2023 8:06 AM EDT [facility] Total CO2 25 22 - 29 mmol/L 02/15/2023 8:06 AM EDT [facility] Anion Gap 7 7 - 16 mmol/L 02/15/2023 8:06 AM EDT [facility] Calcium 8.3(L) 8.8 - 10.4 mg/dL 02/15/2023 8:06 AM EDT [facility] Glucose Lvl 92 82 - 100 mg/dL 02/15/2023 8:06 AM EDT [facility] BUN 23 8 - 23 mg/dL 02/15/2023 8:06 AM EDT [facility] Creatinine 1.31(H) 0.51 - 1.30 mg/dL 02/15/2023 8:06 AM EDT [facility] eGFR (CKD-EPIcr 2020) 42(L) >=60 mL/min/1.7 3 m2 02/15/2023 8:06 AM EDT [facility] Comment:Estimated GFR was ca lculated using the CKD-EPIcr (2020) equation refit without race. The equation is recommended by the National Kidney Foundation - [place] Society of Nephrology Task Force. Blood VENOUS BLOOD / Unknown Venipuncture / Unknown 02/15/2023 7:21 AM EDT 02/15/2023 7:26 AM EDT us Katharine Nunez MD CHEMISTRY ORDERABLES Final R esult Performing Organization Address City/[facility] Co de Phone Number [facility] [employer] , [address] [place] [phone] [facility] [address] [place] [address] * PLATELET COUNT (02/14/2023 9:38 AM EDT) Platelet 167 155 - 369 x10(3)/mcL 02/14/2023 9:55 AM EDT [facility] MPV 9.9 8.8 - 12.5 fL 02/14/2023 9:55 AM EDT [facility] Blood VENOUS BLOOD / Unknown Venipuncture / Unknown 02/14/2023 9:38 AM EDT 02/14/2023 9:49 AM EDT us Katharine Nunez MD HEMATOLOGY ORDERABLES Final Result Performing Organization Address [facility] Co de Phone Number [facility] [employer] , [address] [place] [phone] * US RENAL AND BLADDER (02/13/2023 5:49 PM EDT) Anatomical Region Laterality Modality Abdomen, Pelvis Ultrasound 02/13/2023 5:49 PM EDT Impressions 02/13/2023 8:31 PM EDT Small RIGHT kidney. No hydronephrosis. - Note: Radiology results need to be interpreted within a comprehensive clinical context. If you have questions about the radiology report, please contact the office of the ordering clinician. Narrative 02/13/2023 8:31 PM EDT US KIDNEYS AND BLADDER, 02/13/2023 5:49 PM CLINICAL HISTORY: -arf. COMPARISON: None. PROCEDURE COMMENTS: Routine sonographic evaluation of the kidneys and bladder with financial representative images and field secretary notes sent to PACS for radiologist review. FINDINGS: RIGHT: 8.8 x 3.5 x 3.9 cm. No hydronephrosis.. LEFT: 9.9 x 3.9 x 5.8 cm.. No hydronephrosis. PELVIS: The bladder is sonographically normal. Bilateral ureteral jets seen. Procedure Note Frandy Kirkland MD - 02/13/2023 US KIDNEYS AND BLADDER, 02/13/2023 5:49 PM CLINICAL HISTORY: -arf. COMPARISON: None. PROCEDURE COMMENTS: Routine sonographic evaluation of the kidneys andbladder with financial representative images and field secretary notes sent to PACS forradiologist review. FINDINGS: RIGHT: 8.8 x 3.5 x 3.9 cm. No hydronephrosis.. LEFT: 9.9 x 3.9 x 5.8 cm.. No hydronephrosis. PELVIS: The bladder is sonographically normal. Bilateral ureteral jetsseen. IMPRESSION: Small RIGHT kidney. No hydronephrosis. - Note: Radiology results need to be interpreted within a comprehensiveclinical context. If you have questions about the radiology report, please contactthe office of the ordering clinician. us R Michele Pastor MD [facility] US ORDERABLES Final Resul t * (ABNORMAL) PROTEIN/CREATININE RATIO URINE (02/13/2023 5:22 PM EDT) Urine Protein 19.0 mg/dL 02/13/2023 6:00 PM EDT [facility] [employer] Urine Creatinine 107.0 mg/dL 02/13/2023 6:00 PM EDT [facility] Ur Protein/Creat 0.18(H) <=0.14 mg/mg 02/13/2023 6:00 PM EDT [facility] Urine URINE SPECIMEN COLLECTION / Unknown 02/13/2023 5:22 PM EDT 02/13/2023 5:28 PM EDT Oneil Pastor MD URINE ORDERABLES Final Result Performing Organization Address [facility] Co de Phone Number [facility] , [place] [address] * SODIUM LEVEL URINE (02/13/2023 5:22 PM EDT) Urine Sodium 121 mmol/L 02/13/2023 5:59 PM EDT [facility] Urine URINE SPECIMEN COLLECTION / Unknown 02/13/2023 5:22 PM EDT 02/13/2023 5:28 PM EDT Oneil Pastor MD URINE ORDERABLES Final Result Performing Organization Address [facility] de Phone Number [facility] , [place] [address] * (ABNORMAL) VITAMIN B12/ FOLIC ACID (02/13/2023 12:31 PM EDT) Vitamin B12 <150(L) 232 - 1,245 pg/mL 02/13/2023 1:31 PM EDT [facility] Folate 7.83 >=4.80 ng/mL 02/13/2023 1:31 PM EDT [facility] Blood VENOUS BLOOD / Unknown Venipuncture / Unknown 02/13/2023 12:31 PM EDT 02/13/2023 12:43 PM EDT Narrative [facility] - 02/13/2023 1:31 PM EDT Ingestion of joslyn doses of biotin (>5 mg/day) taken within 8 hours of drawing blood sample can interfere with this immunoassay test. Katharine Nunez MD CHEMISTRY ORDERABLES Final R esult Performing Organization Address [facility]/ZIP Co de Phone Number [employer] [address] , [place] [address] * THYROID STIMULATING HORMONE (02/13/2023 12:31 PM EDT) TSH 1.600 0.270 - 4.200 mcIU/mL 02/13/2023 1:23 PM EDT [facility] Blood VENOUS BLOOD / Unknown Venipuncture / Unknown 02/13/2023 12:31 PM EDT 02/13/2023 12:43 PM EDT Narrative [facility] [employer] - 02/13/2023 1:23 PM EDT Ingestion of joslyn doses of biotin (>5 mg/day) taken within 8 hours of drawing blood sample can interfere with this immunoassay test. Jose Lima MD CHEMISTRY ORDERABLES Final Re sult Performing Organization Address [facility] Co de Phone Number [facility] [address] [place] [address] , [place] [address] * XR CHEST AP PORTABLE (02/12/2023 8:54 PM EDT) Anatomical Region Laterality Modality Chest Radiographic Zayra ging 02/12/2023 8:54 PM EDT Impressions 02/12/2023 8:56 PM EDT No acute cardiopulmonary process. - Note: Radiology results need to be interpreted within a comprehensive clinical context. If you have questions about the radiology report, please contact the office of the ordering clinician. Narrative 02/12/2023 8:56 PM EDT AP PORTABLE CHEST XRAY, 02/12/2023 8:54 PM. CLINICAL HISTORY: -HYPERKALEMIA COMPARISON: None. PROCEDURE COMMENTS: AP portable chest x-ray. FINDINGS: Support devices: No visible support devices. Normal heart size. Aorta moderately tortuous with calcifications. No acute failure, pneumonia, or effusion. Procedure Note Frandy Kirkland MD - 02/12/2023 AP PORTABLE CHEST XRAY, 02/12/2023 8:54 PM. CLINICAL HISTORY: -HYPERKALEMIA COMPARISON: None. PROCEDURE COMMENTS: AP portable chest x-ray. FINDINGS: Support devices: No visible support devices. Normal heart size. Aorta moderately tortuous with calcifications. Noacute failure, pneumonia, or effusion. IMPRESSION: No acute cardiopulmonary process. - Note: Radiology results need to be interpreted within a comprehensiveclinical context. If you have questions about the radiology report, please contactthe office of the ordering clinician. Giselle Staples MD IM DIAGNOSTIC IMAGING [facility] Final Result * (ABNORMAL) URINALYSIS REFLEX (02/12/2023 8:27 PM EDT) UA Color Light Yellow 02/12/2023 8:53 PM EDT [facility] UA Appear Clear Clear 02/12/2023 8:53 PM EDT [facility] UA Glucose 1+ (70-100 mg/dL)(A) Negative mg/dL 02/12/2023 8:53 PM EDT [facility] [facility] UA Ketones Negative Negative mg/dL 02/12/2023 8:53 PM EDT [facility] UA Blood Negative Negative 02/12/2023 8:53 PM EDT [facility] UA pH 5.5 5.0 - 8.0 pH 02/12/2023 8:53 PM EDT [facility] UA Protein Trace (10-20 mg/dL) Negative mg/dL 02/12/2023 8:53 PM EDT [facility] UA Urobilinogen Normal <=1 mg/dL 8:53 PM EDT [facility] UA Bili Negative Negative 02/12/2023 8:53 PM EDT [facility] UA Nitrite Negative Negative 02/12/2023 8:53 PM EDT [facility] UA Leuk Est 2+ (75 Karina/mcl)(A) Negative 02/12/2023 8:53 PM EDT [facility] UA Spec Grav 1.026 1.001 - 1.035 no units 02/12/2023 8:53 PM EDT [facility] Comment:Reference range david d for random specimens only. UA WBC 14(H) 0 - 4 /HPF 02/12/2023 8:53 PM EDT [facility] UA RBC 1 0 - 3 /HPF 02/12/2023 8:53 PM EDT [facility] UA Squam Epi 4+ /LPF 02/12/2023 8:53 PM EDT [facility] UA Mucus Trace /LPF 02/12/2023 8:53 PM EDT [facility] UA Bacteria 1+(A) Negative /HPF 02/12/2023 8:53 PM EDT [facility] Urine URINE SPECIMEN COLLECTION, CLEAN CATCH / Unknown 02/12/2023 8:27 PM EDT 02/12/2023 8:32 PM EDT Giselle Staples MD URINE ORDERABLES Final Resu lt Performing Organization Address City/[facility]/ZIP Co de Phone Number [facility], [address], [place] [address] * EXTRA [place] URINE CX (02/12/2023 8:27 PM EDT) Urine URINE SPECIMEN COLLECTION, CLEAN CATCH / Unknown 02/12/2023 8:27 PM EDT 02/12/2023 8:32 PM EDT Giselle Staples MD MICROBIOLOGY - GENERAL [facility] Final Result Performing Organization Address [facility]/[place] [address] * (ABNORMAL) URINE CULTURE (NO STAIN) (02/12/2023 8:27 PM EDT) Culture Positive Growth(A) 02/14/2023 10:54 AM EDT [facility] Culture >100,000 CFU/mL Escherichia coli SUSCEPTIBI LITY RESULT 02/14/2023 10:54 AM EDT [facility] Culture 100,000 CFU/mL Aerococcus sanguinicola SUSCEPTIBI LITY RESULT 02/14/2023 10:54 AM EDT [facility] Comment:No further workup. Urine URINE SPECIMEN COLLECTION, CLEAN CATCH / Unknown 02/12/2023 8:27 PM EDT 02/12/2023 8:53 PM EDT Narrative Organism Antibiotic Method Susceptibility Escherichia coli Amikacin SUSCEPTIBILITY RESULT <=16 ug/mL: Susceptible Escherichia coli Amoxicillin/Clavulanate SUSCEPTIBILIT Y RESULT <=8/4 ug/mL: Susceptible Escherichia coli Ampicillin SUSCEPTIBILITY RESULT <=8 ug/mL: Susceptible Escherichia coli Ampicillin/Sulbactam SUSCEPTIBILITY R ESULT <=4/2 ug/mL: Susceptible Escherichia coli Aztreonam SUSCEPTIBILITY RESULT <=4 ug/mL: Susceptible Escherichia coli Cefazolin SUSCEPTIBILITY RESULT <=2 ug/mL: Susceptible Escherichia coli Cefepime SUSCEPTIBILITY RESULT Escherichia coli Cefotaxime SUSCEPTIBILITY RESULT Escherichia coli Cefoxitin SUSCEPTIBILITY RESULT <=8 ug/mL: Susceptible Escherichia coli Ceftazidime SUSCEPTIBILITY RESULT Escherichia coli Ceftazidime/Avibactam SUSCEPTIBILITY RESULT Escherichia coli Ceftolozane/Tazobactam SUSCEPTIBILITY RESULT Escherichia coli Ceftriaxone SUSCEPTIBILITY RESULT Escherichia coli Cefuroxime SUSCEPTIBILITY RESULT Escherichia coli Ciprofloxacin SUSCEPTIBILITY RESULT <=0.25 ug/mL: Susceptible Escherichia coli Ertapenem SUSCEPTIBILITY RESULT <=0.5 ug/mL: Susceptible Escherichia coli Gentamicin SUSCEPTIBILITY RESULT <=2 ug/mL: Susceptible Escherichia coli Imipenem SUSCEPTIBILITY RESULT <=1 ug/mL: Susceptible Escherichia coli Levofloxacin SUSCEPTIBILITY RESULT <=0.5 ug/mL: Susceptible Escherichia coli Meropenem SUSCEPTIBILITY RESULT <=1 ug/mL: Susceptible Escherichia coli Meropenem/Vaborbactam SUSCEPTIBILITY RESULT Escherichia coli Minocycline SUSCEPTIBILITY RESULT Escherichia coli Moxifloxacin SUSCEPTIBILITY RESULT Escherichia coli Nitrofurantoin SUSCEPTIBILITY RESULT <=32 ug/mL: Susceptible Escherichia coli Piperacillin/Tazobactam SUSCEPTIBILIT Y RESULT <=8 ug/mL: Susceptible Escherichia coli Tetracycline SUSCEPTIBILITY RESULT <=4 ug/mL: Susceptible Escherichia coli Tigecycline SUSCEPTIBILITY RESULT Escherichia coli Tobramycin SUSCEPTIBILITY RESULT <=2 ug/mL: Susceptible Escherichia coli Trimethoprim/Sulfame tho xazole SUSCEPTIBILITY RESULT <=0.5/9.5 ug/mL: Susceptible us Giselle Staples MD MICROBIOLOGY - GENERAL [facility] Final Result [facility] [address] , [place] [address] * (ABNORMAL) CBC WITH DIFF (02/12/2023 6:45 PM EDT) [facility] WBC 5.2 3.7 - 10.3 x10(3)/mcL 02/12/2023 6:58 PM EDT [facility] RBC 3.66(L) 3.90 - 5.20 x10(6)/mcL 02/12/2023 6:58 PM EDT [facility] Hgb 11.3 11.2 - 15.7 g/dL 02/12/2023 6:58 PM EDT [facility] Hct 38.0 34.0 - 45.0 % 02/12/2023 6:58 PM EDT [facility] MCV 103.8(H) 80.0 - 100.0 fL 02/12/2023 6:58 PM EDT [facility] MCH 30.9 26.0 - 34.0 pg 02/12/2023 6:58 PM EDT [facility] MCHC 29.7(L) 30.7 - 35.5 g/dL 02/12/2023 6:58 PM EDT [facility] RDW 14.7 <=14.9 % 02/12/2023 6:58 PM EDT [facility] Platelet 210 155 - 369 x10(3)/mcL 02/12/2023 6:58 PM EDT [facility] MPV 9.7 8.8 - 12.5 fL 02/12/2023 6:58 PM EDT [facility] Neut Percent 36.9 % 02/12/2023 6:58 PM EDT [facility] Comment:Neutrophils equals s egs plus bands Imm Gran% 0.0 % 02/12/2023 6:58 PM EDT [facility] Comment:Automated count of m etamyelocytes, myelocytes and promyelocytes. Lymph Percent 51.1 % 02/12/2023 6:58 PM EDT [facility] [place] Percent 7.5 % 02/12/2023 6:58 PM EDT [facility] Eos Percent 3.7 % 02/12/2023 6:58 PM EDT [facility] Baso Percent 0.8 % 02/12/2023 6:58 PM EDT [facility] Neut # 1.9 1.6 - 6.1 x10(3)/[facility] 02/12/2023 6:58 PM EDT [facility] Comment:Neutrophils equals s egs plus bands IMMGRAN# 0.0 0.0 - 0.1 x10(3)/[facility] 02/12/2023 6:58 PM EDT [facility] Comment:Automated count of m etamyelocytes, myelocytes and promyelocytes. An absolute IG <0.1 is reported as 0.0. Lymph # 2.7 1.2 - 3.9 x10(3)/[facility] 02/12/2023 6:58 PM EDT [facility] [place] # 0.4 0.3 - 0.9 x10(3)/[facility] 02/12/2023 6:58 PM EDT [facility] Eos# 0.2 0.0 - 0.5 x10(3)/[facility] 02/12/2023 6:58 PM EDT [facility] Baso # 0.0 0.0 - 0.1 x10(3)/[facility] 02/12/2023 6:58 PM EDT [facility] Blood VENOUS BLOOD / Unknown Venipuncture / Unknown 02/12/2023 6:45 PM EDT 02/12/2023 6:52 PM EDT Giselle Staples MD HEMATOLOGY ORDERABLES Final Result [place] [id number] * PHOSPHORUS LEVEL (02/12/2023 6:45 PM EDT) [facility] Phosphorus 3.6 2.5 - 4.5 mg/dL 02/12/2023 7:30 PM EDT [facility] Blood VENOUS BLOOD / Unknown Venipuncture / Unknown 02/12/2023 6:45 PM EDT 02/12/2023 6:52 PM EDT Giselle Staples MD CHEMISTRY ORDERABLES Final Result [facility] [address] [place] [address] * MAGNESIUM LEVEL (02/12/2023 6:45 PM EDT) Magnesium 2.2 1.6 - 2.4 mg/dL 02/12/2023 7:30 PM EDT [facility] Blood VENOUS BLOOD / Unknown Venipuncture / Unknown 02/12/2023 6:45 PM EDT 02/12/2023 6:52 PM EDT us Giselle Staples MD CHEMISTRY ORDERABLES Final Result Performing Organization Address City/[facility]/ZIP Co de Phone Number [address] [address] * EK EKG 12 LEAD (02/12/2023 4:11 PM EDT) Anatomical Region Laterality Modality Electrocardiogra phy 02/12/2023 4:19 PM EDT Impressions 02/12/2023 4:[address] [facility] Test Date: 2023-02-12 Pat Name: TAO NEWTON Department: DEPID Room: Gender: Female Agricultural Pilot: JAVIER YOUNGB: 1945 Requested By: [facility] Order Number: [id number] Reading MD: Hamzah Ch Measurements Intervals [place] Rate: 71 P: 47 NH: 163 QRS: -26 QRSD: 89 T: 5 QT: 327 QTc: 357 Interpretive Statements SINUS RHYTHM WITH SINUS ARRHYTHMIA BORDERLINE LEFT AXIS DEVIATION VOLTAGE CRITERIA FOR LVH Electronically Signed On 02-12-2023 16:59:32 EDT by Hamzah Ch Narrative Procedure Note Hamzah Ch MD - 02/12/[address] [facility] Test Date: 2023-02-12 Pat Name: TAO NEWTON Department: DEPID Room: Gender: Female Agricultural Pilot: JAVIER YOUNGB: 1945 Requested By: [facility] Order Number: [id number] Reading MD: Hamzah Ch Measurements Intervals [place] Rate: 71 P: 47 NH: 163 QRS: -26 QRSD: 89 T: 5 QT: 327 QTc: 357 Interpretive Statements SINUS RHYTHM WITH SINUS ARRHYTHMIA BORDERLINE LEFT AXIS DEVIATION VOLTAGE CRITERIA FOR LVH Electronically Signed On 02-12-2023 16:59:32 EDT by Hamzah Ch us Giselle Staples MD IMG ECG ORDERABLES Final Re sult * MM MAMMO DIGITAL SCREENING W CAD BILAT (03/19/2022 2:38 PM EDT) Only the most recent of4 resultswithin the time period is included. Anatomical Region Laterality Modality Breast Bilateral Mammography 03/19/2022 3:29 PM EDT Impressions 03/19/2022 3:29 PM EDT Negative (BEF-Qpzjevid-4) ~ RECOMMENDATION: Routine screening mammogram in 1 year. ~ DISCLAIMER * Any patient with a palpable abnormality, unexplained by breast imaging, should be managed on clinical basis by the attending physician. * Breast imaging has a false negative rate of 15%. * The patient was notified by mail of the results of this examination. *The patient's information was entered into a reminder system with a target due date for the next mammogram, in accordance with the [employer] and the Society of Breast Imaging recommendations. The mammogram was reviewed by a Radiologist and CAD. Narrative 03/19/2022 3:29 PM EDT Procedure:MM MAMMO DIGITAL SCREENING W CAD BILAT ~ Reason for exam: screening, asymptomatic. Z12.31-Encounter for screening mammogram for malignant neoplasm of eqkrnp-KEW-52-CM ~ MM MAMMO DIG SCREEN CAD BILAT Bilateral CC and MLO view(s) were taken. There are scattered fibroglandular densities. Prior study comparison: Compared with prior studies the most recent being 03/11/21, 11/09/19 There is incomplete inclusion of the posterior tissues of the left breast on the MLO view. There is only a sliver of left pectoralis muscle. The images were performed in a wheelchair and best possible images were obtained. There are no suspicious masses, microcalcifications or areas of architectural distortion in either breast. ~ Procedure Note Melissa Mauro MD - 03/19/2022 Procedure:MM MAMMO DIGITAL SCREENING W CAD BILAT ~ Reason for exam: screening, asymptomatic. Z12.31-Encounter for screening mammogram for malignant neoplasm of negleu-GKY-87-CM ~ MM MAMMO DIG SCREEN CAD BILAT Bilateral CC and MLO view(s) were taken. There are scattered fibroglandular densities. Prior study comparison: Compared with prior studies the most recentbeing 03/11/21, 11/09/19 There is incomplete inclusion of the posterior tissues of the leftbreast on the MLO view. There is only a sliver of left pectoralis muscle. The images were performed in a wheelchair and best possible images were obtained. There are no suspicious masses, microcalcifications or areasof architectural distortion in either breast. ~ IMPRESSION: Negative (PAT-Nzjirjnn-0) ~ RECOMMENDATION: Routine screening mammogram in 1 year. ~ DISCLAIMER * Any patient with a palpable abnormality, unexplained by breast imaging, should be managed on clinical basis by the attending physician. * Breast imaging has a false negative rate of 15%. * The patient was notified by mail of the results of this examination. *The patient's information was entered into a reminder system with atarget due date for the next mammogram, in accordance with the [employer] and the Society of Breast Imaging recommendations. The mammogram was reviewed by a Radiologist and CAD. Maverick Britton MD IM MAMMOGRAPHY ORDERABLES Final Result * MM US BREAST LIMITED LEFT (03/11/2021 1:57 PM EDT) Anatomical Region Laterality Modality Breast Left Ultrasound 03/11/2021 2:11 PM EDT Impressions 03/11/2021 2:11 PM EDT Negative (OLU-Swudyrpv-7) No imaging explanation for left breast pain. ~ RECOMMENDATION: Routine screening mammogram in 1 year. ~ DISCLAIMER * Any patient with a palpable abnormality, unexplained by breast imaging, should be managed on clinical basis by the attending physician. * Breast imaging has a false negative rate of 15%. * The patient was notified by mail of the results of this examination. *The patient's information was entered into a reminder system with a target due date for the next mammogram, in accordance with the [employer] and the Society of Breast Imaging recommendations. Narrative 03/11/2021 2:11 PM EDT Indicated problem(s): left breast pain. N64.3-Dqkvupphcn-ULC-10-CM ~ MM US BREAST LIMITED LEFT ~ Prior study comparison: Compared with prior studies, the most recent being mammograms of the same date. Area of focal pain posterior left breast 3:00 position shows no focal abnormality. No solid or cystic mass. ~ Procedure Note Vinny Mitchell MD - 03/11/2021 Indicated problem(s): left breast pain. N64.3-Nsaxcwrhad-GRB-10-CM ~ MM US BREAST LIMITED LEFT ~ Prior study comparison: Compared with prior studies, the most recentbeing mammograms of the same date. Area of focal pain posterior left breast 3:00 position shows no focal abnormality. No solid or cystic mass. ~ IMPRESSION: Negative (QMU-Poxnrvxb-9) No imaging explanation for left breast pain. ~ RECOMMENDATION: Routine screening mammogram in 1 year. ~ DISCLAIMER * Any patient with a palpable abnormality, unexplained by breast imaging, should be managed on clinical basis by the attending physician. * Breast imaging has a false negative rate of 15%. * The patient was notified by mail of the results of this examination. *The patient's information was entered into a reminder system with atarget due date for the next mammogram, in accordance with the [employer] and the Society of Breast Imaging recommendations. Maverick Britton MD [facility] MAMMOGRAPHY ORDERABLES Final Result * MM MAMMO DIGITAL SMILEY DIAGN BILAT (03/11/2021 1:42 PM EDT) Anatomical Region Laterality Modality Breast Bilateral Mammography 03/11/2021 1:53 PM EDT Impressions 03/11/2021 1:53 PM EDT Incomplete-need additional imaging evaluation (JWD-Gdtbbjsu-3) ~ RECOMMENDATION: Ultrasound of the left breast. ~ DISCLAIMER * Any patient with a palpable abnormality, unexplained by breast imaging, should be managed on clinical basis by the attending physician. * Breast imaging has a false negative rate of 15%. * The patient was notified by mail of the results of this examination. *The patient's information was entered into a reminder system with a target due date for the next mammogram, in accordance with the [employer] and the Society of Breast Imaging recommendations. Narrative 03/11/2021 1:53 PM EDT Indicated problem(s): left breast pain for 3 months. N64.9-Pxaxdcockc-IXS-10-CM posterior lateral left breast-chest wall ~ MM MAMMO DIGITAL SMILEY DIAGN BILAT Bilateral CC and MLO view(s) were taken. There are scattered fibroglandular densities. Prior study comparison: Compared with prior studies the most recent being 11/09/19, 03/22/18 No evidence of mass, distortion or suspicious microcalcification. ~ Procedure Note Vinny Mitchell MD - 03/11/2021 Indicated problem(s): left breast pain for 3 months. N64.4-Jslmbtrgic-MBQ-10-CM posterior lateral left breast-chest wall ~ MM MAMMO DIGITAL SMILEY DIAGN BILAT Bilateral CC and MLO view(s) were taken. There are scattered fibroglandular densities. Prior study comparison: Compared with prior studies the most recentbeing 11/09/19, 03/22/18 No evidence of mass, distortion or suspicious microcalcification. ~ IMPRESSION: Incomplete-need additional imaging evaluation (KSI-Sidyxeee-4) ~ RECOMMENDATION: Ultrasound of the left breast. ~ DISCLAIMER * Any patient with a palpable abnormality, unexplained by breast imaging, should be managed on clinical basis by the attending physician. * Breast imaging has a false negative rate of 15%. * The patient was notified by mail of the results of this examination. *The patient's information was entered into a reminder system with atarget due date for the next mammogram, in accordance with the [employer] and the Society of Breast Imaging recommendations. us Maverick Britton MD IMG MAMMOGRAPHY ORDERABLES Final Result * MM OUTSIDE FILMS FOR COMPARISON (07/06/2013 12:27 PM EDT) Only the most recent of4 resultswithin the time period is included. Anatomical Region Laterality Modality Breast Mammography us Not In [facility] Provider IMG MAMMOGRAPHY ORDERABLES Final Result * MM MOBILE MAMMO DIGITAL SCREEN W CAD ARIADNA (06/30/2013 4:27 PM EDT) Anatomical Region Laterality Modality Breast Mammography 07/07/2013 6:44 AM EDT Impressions 07/07/2013 4:17 PM EDT : Negative (CCV-Utbsvbil-2) ~ RECOMMENDATION: Routine screening mammogram in 1 year. ~ * The patient with a palpable abnormality, unexplained by breast imaging, should be managed on clinical basis by the attending physician. * Breast imaging has a false negative rate of 15%. * The patient was notified by mail of the results of this examination. *The patient's information was entered into a reminder system with a target due date for the next mammogram. The mammogram was reviewed by a Radiologist and CAD. Narrative 07/07/2013 4:17 PM EDT Procedure:MM MOBILE MAMMO DIGITAL SCREEN W CAD ARIADNA ~ Reason for exam: screening (asymptomatic). ~ MM MOBILE MAMMO DIGITAL SCREEN W CAD ARIADNA Bilateral CC and MLO view(s) were taken. There are scattered fibroglandular densities. There are 6-10 benign appearing scattered round and punctate calcifications bilaterally, right greater than left. No suspicious calcifications. Two biopsy clips right breast 10-11:00 position. Compared to prior studies the most recent being 07-05-09 ~ Procedure Note Sandra Brewer MD - 07/07/2013 Procedure:MM MOBILE MAMMO DIGITAL SCREEN W CAD ARIADNA ~ Reason for exam: screening (asymptomatic). ~ MM MOBILE MAMMO DIGITAL SCREEN W CAD ARIADNA Bilateral CC and MLO view(s) were taken. There are scattered fibroglandular densities. There are 6-10 benign appearing scattered round and punctate calcifications bilaterally, right greater than left. No suspicious calcifications. Two biopsy clips right breast 10-11:00 position. Compared to prior studies the most recent being 07-05-09 ~ IMPRESSION: Negative (IFS-Wwsbfqxd-2) ~ RECOMMENDATION: Routine screening mammogram in 1 year. ~ * The patient with a palpable abnormality, unexplained by breast imaging, should be managed on clinical basis by the attending physician. * Breast imaging has a false negative rate of 15%. * The patient was notified by mail of the results of this examination. *The patient's information was entered into a reminder system with atarget due date for the next mammogram. The mammogram was reviewed by a Radiologist and CAD. Anne Newton MD IMG MAMMOGRAPHY ORDERABLES Final Result Visit Diagnoses Diagnosis Start Date Other screening mammogram 06/30/2013 Visit for screening mammogram Other screening mammogram 03/15/2017 Encounter for screening mammogram for malignant neoplasm of breast Other screening mammogram 03/22/2018 Encounter for screening mammogram for malignant neoplasm of breast Other screening mammogram 11/09/2019 Breast pain, left Mastodynia 03/11/2021 Breast pain, left Mastodynia 03/11/2021 Encounter for screening mammogram for malignant neoplasm of breast Other screening mammogram 03/19/2022 Hyperkalemia Hyperpotassemia 02/12/2023 Hyperkalemia Hyperpotassemia 02/22/2023 Hyperkalemia Hyperpotassemia 02/12/2023 Renal insufficiency Unspecified disorder of kidney and ureter 02/12/2023 Obesity, morbid, BMI 50 or higher (HCC) 02/12/2023 Acquired hypothyroidism Unspecified hypothyroidism 02/12/2023 Care Teams Regional Business Manager Relationship Specialty Start Date End Date Maverick Britton MD PCP - General Family Medicine 03/02/17
== END 2025-04-25 23:59 | disposition home or self-care (01) ==
LOC: LAB.DROPOF 04-26 10:48
PROVIDERS: PCP Nurse Practitioner; Visit Provider Nurse Practitioner
DX: E03.9 Hypothyroidism, unspecified (principal); N18.9 Chronic kidney disease, unspecified
CPT/HCPCS: 80053; 84439; 84443